=== PATIENT | male | born 1990 | race Caucasian/White ===

== ENCOUNTER 2018-12-15 00:22 | Emergency (ER) | payer SELFPAY ==
[~2018-12-15] VITALS: Ht 170.2 cm; Wt 87.1 kg
--- OUTSIDE RECORDS SUMMARY | 2018-12-15 00:30 | XMS REPORT ---
Author Author CANDIE DUBOSE Organization [employer] Address Unknown Phone Unavailable Care Team Providers [employer] Name Role Phone CANDIE DUBOSE CP Unavailable Allergies, Adverse Reactions, Alerts Substance Reaction Event Type Penicillin V Potassium Info Not Available Drug Allergy Problems Problem Type Condition Code Onset Dates Condition Status Assessment Dental examination Z01.20 Active Problem Unspecified backache 724.5 Active Medications No Known Medications Procedures Procedure Coding System Code Date PANORAMIC FILM SEE ALSO CODE 80987 CPT-4 D0330 May 12, 2016 LTD ORAL EVALUATION - PROBLEM FOCUS CPT-4 D0140 May 12, 2016 Vital Signs Date/Time: May 12, 2016 Blood Pressure Diastolic 73 mmHg Blood Pressure Systolic 120 mmHg Results No Known Results Summary Purpose [employer] Submission
--- OUTSIDE RECORDS SUMMARY | 2018-12-15 00:30 | XMS REPORT | Continuity of Care Document ---
Demographics Preferred Language Unknown Marital Status Unknown Buddhist Affiliation Unknown Race Unknown Ethnic Group Unknown Author Organization Unknown Address Unknown Allergies Active Description Code Type Severity Reaction Onset Reported/Identified Relationship to Patient Clinical Status Yes Cephalosporins Drug Allergy N /A N/A 11/18/2010 Yes doxycycline Drug Allergy N/A N/A 11/18/2010 Yes Penicillins Drug Allergy N/A N/A 11/18/2010 Medications There is no data. Problems Date Dx Coded Attending Type Code Diagnosis Diagnosed By 11/18/2010 882.0 OPEN WOUND OF HAND EXCEPT FINGERS ALONE WITHOUT COMPLICATION 11/18/2010 E001.0 WALKING, MARCHING AND HIKING 02/15/2013 724.5 BACKACHE UNSPECIFIED Procedures There is no data. Results There is no data. Encounters ACCT No. Visit Date/Time Discharge Status Pt. Type Provider Facility Loc./Unit Complaint [id number] 02/15/2013 15:11:00 Document Registration
[2018-12-15] MEDS ORDERED: TETANUS,DIPTH,PERTUSS P/F (BOOSTRIX) 0.5 ML VIAL IM ONE (00:45)
[2018-12-15] MEDS ORDERED: RX-TRIMETH/SULFA. 160-800 MG (BACTRIM DS) TAB PPK#2 PO STA (01:09)
[2018-12-15] MEDS ORDERED: RX-MUPIROCIN (BACTROBAN) 2% OINT 22 GM TUBE TOP STA (01:09)
[2018-12-15] MEDS ORDERED: SULF1TAB35 PO (01:13)
[2018-12-15] MEDS ORDERED: MUPI1OIN6 TP (01:13)
--- NOTE | 2018-12-15 01:14 | ED Upper Extremity ---
General Chief Complaint: Laceration Stated Complaint: LEFT ARM LAC Source: patient History of Present Illness Date Seen by Provider: Dec 15, 2018 Time Seen by Provider: 00:34 Initial Comments PT ARRIVES VIA POV C/O LACERATIONS TO LEFT FOREARM STATES HE WAS CUTTING DOWN TREES IN [facility], AND TRIPPED AND FELL ONTO A LOG OCCURRED AT 2000 TONIGHT ADAMANTLY DENIES ANY INJURY FROM [employer] STATES [employer] WAS OFF AND HE THREW IT HE FELL. HAS MINOR ABRASION TO RIGHT PALM, OTHERWISE NO OTHER INJURIES NO PARESTHESIAS OR MOTOR DEFICITS NO PRIOR INJURY TO THIS ARM HAS NOT TAKEN ANYTHING FOR PAIN HAS NOT ATTEMPTED TO CLEAN IT AT ALL LAST TETANUS IS UNKNOWN PCP: NONE Allergies and Home Medications Allergies Coded Allergies: Cephalosporins (Verified Allergy, Unknown, 12/15/18) Penicillins (Verified Allergy, Unknown, 12/15/18) doxycycline (Verified Allergy, Unknown, 12/15/18) Home Medications Mupirocin 1 Gm Oin.pf.xavier, 1 GM TP BID Prescribed by: JARROD PERDUE on 12/15/18112 Sulfamethoxazole/Trimethoprim 1 Each Tablet, 1 EACH PO BID Prescribed by: JARROD PERDUE on 12/15/18112 Patient Home Medication List Home Medication List Reviewed: Yes Review of Systems Constitutional: no symptoms reported Musculoskeletal: see HPI Skin: see HPI Psychiatric/Neurological: No Symptoms Reported Past Dlvhelo-Tfmlbw-Nvhscu Hx Patient Social History Recent Foreign Travel: No Contact w/Someone Who Travel: No Immunizations Up To Date Tetanus Booster (TDap): Unknown Past Medical History Surgeries: No Respiratory: No Cardiac: No Neurological: No Genitourinary: No Gastrointestinal: No Musculoskeletal: No Endocrine: No HEENT: No Cancer: No Psychosocial: No Integumentary: No Blood Disorders: No Physical Exam Vital Signs Vital Signs - First Documented 12/15/18 12/15/18 00:33 01:25 Temp 98.5 Pulse 91 Resp 18 B/P (MAP) 138/83 (101) Pulse Ox 97 O2 Delivery Room Air Capillary Refill : Height, Weight, BMI Height: '" Weight: lbs. oz. kg; BMI Method: General Appearance: WD/WN, no apparent distress, other (FILTHY) Shoulder: normal inspection, non-tender, no evidence of injury, normal ROM Elbow/Forearm: normal ROM, Left (LEFT DORSAL FOREARM WITH 3 LACERATIONS OF VARIOUS LENGTHS AND DEPTHS. + CONTAMINATION WITH DIRT AND DEBRIS. NO ACTIVE BLEEDING. ) Wrist: Yes normal inspection, Yes non-tender, Yes no evidence of injury, Yes normal ROM Hand: Right (RIGHT THENAR EMINENCE/BASE OF THUMB WITH MINOR ABRASION. NON- TENDER. MOTOR/SENSORY/VASCULAR INTACT. 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 NO SIGNIFICANT GAPING. WOUND EDGES ARE SMOOTH, RELATIVELY STRAIGHT AND NOT MACERATED. ALL DEEP STRUCTURES INTACT MOTOR/SENSORY/VASCULAR INTACT Progress/Results/Core Measures Results/Orders My Orders Orders - JARROD PERDUE Pertuss(Acell),Tet Adult (Boostrix (12/15/18 00:45) Wound Dressing-Ed (12/15/18 00:39) Rx-Trimeth/Sulfameth Ds Tab (Rx-Bactrim/ (12/15/18 01:09) Rx-Mupirocin 2% Oint (Rx-Bactroban) (12/15/18 01:09) Medications Given in ED Progress Progress Note : Progress Note DISCUSSED WITH PT OPTION OF LOOSELY APPROXIMATING WOUNDS VS NON-CLOSURE AND RISKS OF INFECTION /COMPLICATIONS WITH BOTH PT OPTS NON-CLOSURE STRESSED IMPORTANCE OF FOLLOW UP FOR WOUND RECHECK WOUNDS IRRIGATED WITH BETASEPT AND SALINE ALL VISIBLE DEBRIS/DIRT REMOVED. NO BLEEDING WOUNDS DRESSED WITH BACTROBAN AND GAUZE Departure Impression Primary Impression: Laceration of left forearm with foreign body Additional Impressions: Kgyqzerxag-jleehancj-vdctasq (DPT) vaccination administered at current visit Abrasion of right thumb, initial encounter Disposition: HOME, SELF-CARE Condition: Stable Departure-Patient Inst. Referrals: NO,LOCAL PHYSICIAN (PCP/Family) Primary Care Physician Patient Instructions: Diphtheria and Tetanus Toxoids, and Acellular Pertussis Vaccine, Wound Care (DC) Add. Discharge Instructions: CLEAN WOUND 2-3 TIMES A DAY WITH ANTIBACTERIAL SOAP AND WATER, APPLY ANTIBIOTIC OINTMENT AND FRESH DRESSING TWICE A DAY TYLENOL AND MOTRIN NEEDED FOR PAIN FOLLOW UP WITH DR OF CHOICE IN 2-3 DAYS FOR WOUND CHECK All discharge instructions reviewed with patient and/or family. Voiced understanding. Scripts Mupirocin (Mupirocin) 1 Gm Oin.pf.xavier 1 GM TP BID, #22 TUBE Prov: JARROD PERDUE DO 12/15/18 Sulfamethoxazole/Trimethoprim (Bactrim Ds Tablet) 1 Each Tablet 1 EACH PO BID, #20 TAB Prov: JARROD PERDUE DO 12/15/18 JARROD PERDUE DO Dec 15, 2018 01:14
--- NOTE | 2018-12-15 01:15 | NUR ---
LACERATIONS TO LEFT ARM AND RIGHT HAND CLEANED AND IRRIGATED WITH CHLORAHEXADINE AND NS SOLUTION THEN BACTROBAN TO LACS AND COVERED WITH TELFA DRSG AND KERLEX WRAP DRSG.
[2018-12-15 01:25] VITALS: BP 135/80
== END 2018-12-15 01:26 | disposition home or self-care (01) ==
LOC: EDUNIT# 00:22 → ER 00:26
DX: S51.812A Laceration without foreign body of left forearm, initial encounter (principal); S60.311A Abrasion of right thumb, initial encounter; Z88.1 Allergy status to other antibiotic agents; Z88.2 Allergy status to sulfonamides; Z23 Encounter for immunization; W01.0XXA Fall on same level from slipping, tripping and stumbling without subsequent striking against object, initial encounter
CPT/HCPCS: 90715; 99283